=== PATIENT | female | born 1950 | race Caucasian/White ===

== ENCOUNTER 2017-05-10 22:06 | Emergency (ER) | payer OTHER ==
[~2017-05-10] VITALS: Wt 77.0 kg
[~2017-05-10 22:06] MED LIST: ACET500C5 PO; AMLO-218 PO; ASPI-535 PO; BENA40TA41 PO; OMEP20CA16 PO
== END 2017-05-11 01:00 | disposition left against medical advice (07) ==
LOC: E/R 22:06
DX: Z53.21 Procedure and treatment not carried out due to patient leaving prior to being seen by health care provider (principal)